=== PATIENT | male | born 1985 | race Asian ===

== ENCOUNTER 2022-12-19 09:26 | Emergency (ER) | payer OTHER ==
[~2022-12-19] VITALS: Ht 170.2 cm; Wt 103.0 kg
[2022-12-19 09:33] VITALS: BP 160/99
[2022-12-19] MEDS ORDERED: KETOROLAC 30MG/ML VIAL IV STA (09:53)
[2022-12-19] MEDS ORDERED: SODIUM CHLORIDE 0.9% 1,000 ML IV ONE (10:00)
[2022-12-19 10:14] LABS: BASOPHILS % 0.3 % (0.0-2.0); EOSINOPHILS % 0.8 % (0.0-5.0); HEMATOCRIT. 42.7 % (42.0-52.0); HEMOGLOBIN. 14.3 g/dL (14.0-18.0); LYMPHOCYTES % 17.5 % (20.0-50.0); MEAN CORPUSCULAR HEMOGLOBIN 26.6 pg (28.0-32.0); MEAN CORPUSCULAR VOLUME 79.2 fL (80.0-94.0); MEAN PLATELET VOLUME 9.2 fl (7.4-10.4); MONOCYTES % 5.7 % (2.0-8.0); NEUTROPHILS % 75.7 % (40.0-76.0); PLATELET 249 x1000/uL (130-400); RED BLOOD CELL COUNT 5.39 mill/uL (4.7-6.1); RED CELL DISTRIBUTION WIDTH 13.8 % (11.6-14.6)
[2022-12-19 10:20] LABS: CHLORIDE 101 mEq/L (98-107)
[2022-12-19 10:22] LABS: CLARITY URINE CLOUDY (CLEAR); COLOR URINE DARK YELLOW (YELLOW); KETONES URINE TRACE (NEGATIVE); LEUKOCYTE ESTERASE URINE NEGATIVE (NEGATIVE); NITRITE URINE NEGATIVE (NEGATIVE); OCCULT BLOOD URINE NEGATIVE (NEGATIVE); PH URINE 5.5 (4.5-8.0); PROTEIN URINE 3+ (NEGATIVE); SPECIFIC GRAVITY URINE 1.031 (1.005-1.030)
[2022-12-19] MEDS ORDERED: KETOROLAC 15MG/ML VIAL IV ONE (10:45)
[2022-12-19] MEDS ORDERED: TAMS-11 MT (11:37)
[2022-12-19] MEDS ORDERED: ACET-2708 MT (11:40)
[2022-12-19] MEDS ORDERED: IBUP-2028 MT (11:40)
== END 2022-12-19 12:18 | disposition home or self-care (01) ==
LOC: ER 09:26
DX: R10.11 Right upper quadrant pain (principal); E11.9 Type 2 diabetes mellitus without complications; Z87.442 Personal history of urinary calculi
CPT/HCPCS: 36415; 76770; 80053; 81003; 83690; 85025; 96361; 96374; 96375; 99285; J1885; J7030; Z7610